=== PATIENT | female | born 1970 | race Caucasian/White ===

== ENCOUNTER 2016-10-31 13:58 | Emergency (ER) | payer SELFPAY ==
[2016-10-31 14:34] VITALS: BP 119/75; PULSE 94; TEMP 97.9; BMI 26.2
--- NOTE | 2016-10-31 15:00 | EDPRACDOC ---
- General Information Chief Complaint: Back Pain Stated Complaint: BACK PAIN Time Seen by Provider: 10/31/16 14:37 Information Source: Family Mode Of Arrival: Car Home Medications: Home Medications Aspirin/Acetaminophen/Caffeine [Goody's Ex-Str Powder Pkt (325/500/65mg)] 1 solitario PO Q2H PRN 12/11/15 Cyclobenzaprine HCl [Flexeril] 10 mg PO BID #14 tablet 12/22/15 Lorazepam [Ativan] 1 mg PO BID #15 tab 12/22/15 Oxycodone Immediate Release [Oxycodone Immediate Release (OxyIR)] 5 mg PO Q6H PRN #20 tab 12/22/15 Promethazine [Phenergan] 25 mg PO Q4-6H PRN #20 tab 12/22/15 Ketorolac Tromethamine [Toradol] 10 mg PO TID PRN #10 tab 02/07/16 Cyclobenzaprine HCl [Flexeril] 10 mg PO TID #21 tab 02/14/16 Ibuprofen 600 mg PO TID #20 tablet 02/14/16 Sulfamethoxazole/Trimethoprim [Bactrim Ds Tablet] 1 tab PO BID #14 tab 02/14/16 Cyclobenzaprine HCl [Flexeril] 10 mg PO TID PRN #15 tablet 10/31/16 Oxycodone Immediate Release [Oxycodone Immediate Release (OxyIR)] 5 mg PO Q6H PRN #15 tab 10/31/16 Prednisone [Deltasone, Orasone] 20 mg PO DAILY #20 tab 10/31/16 Allergies/Adverse Reactions: Allergies Allergy/AdvReac Type Severity Reaction Status Date / Time codeine Allergy Headache Verified 02/14/16 14:59 - History of Present Illness Onset: over 1 year HPI: Pt c/o increased lower back pain radiating to R leg x months. Pt states she has seen PCP and is concerned she will be paralyzed if the problem isn't looked into. Denies new injury, abd pain, n/v, loss of control bowel or bladder, leg weakness or numbness. 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 negative: Fever, Chills, Weakness, Fatigue, Loss of Appetite Respiratory: No Symptoms Reported. negative: Cough, Brassy Cough, Barky Cough, Shortness of Breath, Wheezing, Hemoptysis Cardiovascular: No Symptoms Reported. negative: Chest Pain, Palpitations, Syncope, Edema, Orthopnea, PND, Skin Mottling, Cyanosis Gastrointestinal: No Symptoms Reported. negative: Pain, Constipation, Nausea, Vomiting, Diarrhea, Melena, Formula Intolerance Genitourinary: No Symptoms Reported. negative: Dysuria, Hematuria, Frequency, Discharge, Bleeding, Testicular Pain, Neurological: No Symptoms Reported. negative: Headache, Dizziness, Seizure, Numbness, Weakness, Speech Difficulty, Gait Difficulty Musculoskeletal: Back, Femur, Hip Integumentary: No Symptoms Reported. negative: Itching, Rash, Bruising, Wound Allergic/Immunologic: No Symptoms Reported. negative: Hives, Itching Hematologic: No Symptoms Reported. negative: Lymphadenopathy, Easy Bruising, Easy Bleeding Psychiatric: No Symptoms Reported. negative: Anxiety, Depression, Hallucinations, Insomnia, Suicidal - Physical Exam Constitutional: Alert Oriented to: Time, Person, Place Last recorded Vital Signs: Last Vital Signs Temp 97.9 F 10/31/16 14:33 Pulse 94 10/31/16 14:33 Resp 20 10/31/16 14:33 BP 119/75 10/31/16 14:33 Pulse Ox 97 10/31/16 14:33 Oxygen Pulse Oxygen Saturation 97 O2 Device Room Air Oxygen Flow Rate Fraction of Inspired Oxygen ( FIO2) - HEENT Head: Normal ( normocephalic) Neck: Normal (FROM, trachea at midline) - Respiratory/Cardiovascular Respiratory: Normal - CTA (BBS clear to auscultation without adventitious sounds ) Cardiovascular: Normal (RRR without murmur, gallop or rub) - GI Auscultation: Normal (NABS) Palpation: Normal (Soft,No rebound or guarding, non distended) Tenderness: Non tender - Musculoskeletal Back: Lumbar TTP Extremities: Normal (Normal tone, Pulses 2+ No cyanosis or edema, FROM) - Integumentary Skin: Normal, Warm, Dry Lymphatics: Normal (no adenopathy) - Neurologic Memory Impaired: Normal Motor Function: Normal (Normal tone, Pulses 2+ No cyanosis or edema, FROM) Mood Description: Normal Perception: Normal ED Back Exam - Neurologic Motor Deficit: None (strength 5/5, sensation nl) Reflexes: Normal (CN II-X11 intact) - Musculoskeletal Cervical: Normal Thoracic: Normal Lumbar: Tender Midline: Tender Paraspinous: Tender Straight Leg Raise: Positive (R) Pelvis: Normal - Differential Diagnosis DJD, Musculoskeletal pain, Strain, Urinary tract infection - Results 10/31/16 15:22 Laboratory Results - last 24 hr 10/31/16 14:41 Urine Color Yellow Urine Clarity Clear Urine pH 6.0 Ur Specific [place] 1.010 Urine Protein 1+ H Urine Glucose (UA) Neg Urine Ketones Neg Urine Occult Blood Neg Urine Nitrite Neg Urine Bilirubin Neg Urine Urobilinogen 0.2 Ur Leukocyte Esterase Neg Urine RBC 0-2 Urine WBC 0-2 Ur Epithelial Cells 1+ Urine Bacteria Few Hyaline Casts 2-5 H Urine Mucus Occ Decision Time to Discharge: 15:22 - Departure Disposition: Home Condition: Good Final Diagnosis: Lumbar radiculopathy Sciatica Qualifiers: Laterality: right Qualified Code(s): M54.31 - Sciatica, right side Instructions: Sciatica (ED), Lumbar Radiculopathy (ED) Education/Counseling Given To: Patient Education/Counseling Given Regarding: Diagnosis, Treatment, Follow Up Referrals: Mateo Webber MD [Primary Care Provider] - One Week Jun De La Paz MD [Staff Physician] - One Week Prescriptions: Cyclobenzaprine HCl [Flexeril] 10 mg PO TID PRN #15 tablet PRN Reason: Pain Oxycodone Immediate Release [Oxycodone Immediate Release (OxyIR)] 5 mg PO Q6H PRN #15 tab PRN Reason: Pain Prednisone [Deltasone, Orasone] 20 mg PO DAILY #20 tab Additional Instructions: Dr Morris is the fire protection specialist at [facility], follow up with Dr Morris for further evaluation of back pain.
[2016-10-31 15:10] LABS: RBC/URINE 0-2 (0-5); WBC/URINE 0-2 (0-5)
[2016-10-31 15:11] LABS: LEUKOCYTES/URINE NEG (NEGATIVE); NITRITE/URINE NEG (NEGATIVE); URINE OCCULT BLOOD NEG (NEG/TRACE)
== END 2016-10-31 15:15 | disposition home or self-care (01) ==
LOC: EDMC 13:58
DX: M54.16 Radiculopathy, lumbar region (principal); M54.31 Sciatica, right side; F17.200 Nicotine dependence, unspecified, uncomplicated
CPT/HCPCS: 81001; 99282